=== PATIENT | female | born 1985 | race Caucasian/White ===

== ENCOUNTER 2023-10-11 15:36 | Emergency (ER) | payer MEDICAID, SELFPAY ==
[2023-10-11 15:44] VITALS: BP 109/59; PULSE 80; RESP 16; TEMP 37.1; O2SAT 100
--- NOTE | 2023-10-11 19:17 | ED.GENADULT ---
HPI - General Adult General Chief complaint: Wound/Laceration Stated complaint: infected finger Time Seen by Provider: 10/11/23 18:50 Source: patient Mode of arrival: ambulatory Limitations: no limitations History of Present Illness HPI narrative: This is a 38-year-old female who presents to the ED with chief complaint of possible index finger infection. Reports pain and swelling to the area that has been increasing over the last couple of days. No drainage. Denies any further sites of pain. Denies fevers, chills, nausea, vomiting. Related Data Allergies Allergy/AdvReac Type Severity Reaction Status Date / Time No Known Allergies Allergy Verified 10/11/23 18:51 Review of Systems Review of Systems: All systems as dictated in HPI Exam Narrative: GENERAL: Well-appearing, well-nourished, and in no acute distress. HEAD: Normocephalic, atraumatic. EYES: PERRLA and EOMI. ENT: Nares clear, no rhinorrhea or epistaxis. Mucous membranes moist. Oropharynx without tonsillar hypertrophy exudate or other lesions. NECK: Supple. No adenopathy or masses. CHEST: No respiratory distress. Clear to auscultation. No wheezes rales or rhonchi HEART: Regular rate and rhythm. No murmur heard. Normal peripheral pulses. ABDOMEN: Soft, nontender, nondistended, normal active bowel sounds. MSK: Normal range of motion. No edema. SKIN: Erythema, warmth and tenderness to the distal right index finger. Mild swelling. Neurovascularly intact distally. NEURO: Alert and oriented x3. No focal deficits. PSYCH: Normal mood and affect. Course Vital Signs Vital signs: Vital Signs Temperature 98.8 F 10/11/23 15:44 Pulse Rate 80 10/11/23 15:44 Respiratory Rate 16 10/11/23 15:44 Blood Pressure 109/59 L 10/11/23 15:44 Pulse Oximetry 100 10/11/23 15:44 Temperature 98.8 F 10/11/23 15:44 Pulse Rate 80 10/11/23 15:44 Respiratory Rate 16 10/11/23 15:44 Blood Pressure 109/59 L 10/11/23 15:44 Pulse Oximetry 100 10/11/23 15:44 Medical Decision Making [facility] Narrative Medical decision making narrative: This is a 38-year-old female who presents to the ED with chief complaint of redness and swelling to the distal end of the right index finger. Vitals are normal. Exam shows evidence of paronychia. Gently unroof to the skin from the nail bed with a 21 gauge needle and was able to express a decent amount of purulent fluid. Symptomatically improved after this. Will give prescription for cephalexin. Pt will be discharged in stable condition. Return precautions given and supportive measures discussed. Pt is understanding and agreeable with plan for discharge and follow-up with PCP. Vital Signs Vital Signs: Vital Signs Temperature 98.8 F 10/11/23 15:44 Pulse Rate 80 10/11/23 15:44 Respiratory Rate 16 10/11/23 15:44 Blood Pressure 109/59 L 10/11/23 15:44 Pulse Oximetry 100 10/11/23 15:44 Temperature 98.8 F 10/11/23 15:44 Pulse Rate 80 10/11/23 15:44 Respiratory Rate 16 10/11/23 15:44 Blood Pressure 109/59 L 10/11/23 15:44 Pulse Oximetry 100 10/11/23 15:44 Discharge Plan Discharge Clinical Impression: Paronychia Patient Disposition: Home, Self-Care Condition: Stable Instructions: Antibiotic Form Additional Instructions: Your exam today showed evidence of infection around the nail bed. Please take antibiotics as prescribed. Continue with warm soaks daily. Watch the area for any spreading redness or swelling. If you have any new or worsening symptoms please return to the ER for further evaluation. Prescriptions: New cephalexin 500 mg capsule 500 mg PO Q8H 7 Days Qty: 21 0RF Follow-up/Referrals: PHYSICIAN,WRAPPER LAYER [Primary Care Provider] - Time of Disposition: 19:20
== END 2023-10-11 19:27 | disposition home or self-care (01) ==
PROVIDERS: Emergency Provider Physician Assistant
DX: L03.011 Cellulitis of right finger (principal)
CPT/HCPCS: 99283